=== PATIENT | male | born 1935 | race Caucasian/White ===

== ENCOUNTER → 2019-11-26 | Outpatient (CLI) | payer MEDICARE ==
[~2019-11-26] MED LIST: FINA5TAB4 PO; METO50TA82 PO; PANT40TA5 PO; SIMV40TA20 PO; TAMS-11 PO
== END | disposition home or self-care (01) ==
LOC: ROC 07:27
PROVIDERS: ATTEND Radiology Radiation Oncology
DX: C83.30 Diffuse large B-cell lymphoma, unspecified site (principal); K56.609 Unspecified intestinal obstruction, unspecified as to partial versus complete obstruction
CPT/HCPCS: 99214; G0463

== ENCOUNTER 2020-01-14 07:27 | Outpatient (CLI) | payer MEDICARE | END 2020-01-14 23:59 | disposition home or self-care (01) | LOC: ROC 07:27 | PROVIDERS: ATTEND Radiology Radiation Oncology | DX: C83.33 Diffuse large B-cell lymphoma, intra-abdominal lymph nodes (principal); G89.3 Neoplasm related pain (acute) (chronic); Z79.899 Other long term (current) drug therapy | CPT/HCPCS: 99213; G0463 ==

== ENCOUNTER 2020-02-03 07:24 | Outpatient (CLI) | payer MEDICARE | END 2020-02-03 23:59 | disposition home or self-care (01) | LOC: ROC 07:24 | PROVIDERS: ATTEND Radiology Radiation Oncology | DX: C83.33 Diffuse large B-cell lymphoma, intra-abdominal lymph nodes (principal); Z79.899 Other long term (current) drug therapy | CPT/HCPCS: 99212; G0463 ==

== ENCOUNTER → 2020-03-15 | Outpatient (CLI) | payer MEDICARE ==
[~2020-03-15] MED LIST changes: +OMNIPAQUE 350 MG/ML, 100ML BOTTLE ONE
== END | disposition home or self-care (01) ==
LOC: RAD 12:20
PROVIDERS: ATTEND Internal Medicine Hematology & Oncology
DX: C83.30 Diffuse large B-cell lymphoma, unspecified site (principal); K76.0 Fatty (change of) liver, not elsewhere classified; K40.20 Bilateral inguinal hernia, without obstruction or gangrene, not specified as recurrent; K43.9 Ventral hernia without obstruction or gangrene; K44.9 Diaphragmatic hernia without obstruction or gangrene; J47.9 Bronchiectasis, uncomplicated; J98.4 Other disorders of lung; J98.11 Atelectasis; I25.10 Atherosclerotic heart disease of native coronary artery without angina pectoris; N28.1 Cyst of kidney, acquired; N40.0 Benign prostatic hyperplasia without lower urinary tract symptoms; M43.06 Spondylolysis, lumbar region; Z90.49 Acquired absence of other specified parts of digestive tract; R59.1 Generalized enlarged lymph nodes
CPT/HCPCS: 71260; 74177; Q9967